=== PATIENT | female | born 1990 | race African-American/Black ===

== ENCOUNTER 2022-12-25 09:25 | Emergency (ER) | payer OTHER ==
[~2022-12-25] VITALS: Ht 170.2 cm; Wt 114.5 kg
[2022-12-25 10:14] VITALS: BP 125/81
[2022-12-25] MEDS ORDERED: METH750T22 PO (10:40)
[2022-12-25] MEDS ORDERED: IBUP800T27 PO (10:40)
== END 2022-12-25 10:48 | disposition home or self-care (01) ==
LOC: ER 09:25
DX: S46.911A Strain of unspecified muscle, fascia and tendon at shoulder and upper arm level, right arm, initial encounter (principal); W18.39XA Other fall on same level, initial encounter; Y93.89 Activity, other specified; Y92.89 Other specified places as the place of occurrence of the external cause; Y99.8 Other external cause status
CPT/HCPCS: 29105; 73030